=== PATIENT | male | born 1940 | race Caucasian/White ===

== ENCOUNTER 2020-04-30 13:50 | Inpatient (IN) ==
[2020-04-30] MEDS ORDERED: Aspirin 325 MG TABLET PO ONE (14:37)
[2020-04-30] MEDS ORDERED: Aspirin 81 MG TAB.CHEW PO ONE (14:45)
[2020-04-30 14:47] LABS: Basophils # 0.1 K/mcL (0.0-0.2); Basophils % 0.9 %; Eosinophils # 0.1 K/mcL (0.0-0.6); Eosinophils % 1.8 %; Hematocrit 42.6 % (37.5-50.1); Hemoglobin 14.6 g/dL (12.9-16.9); Immature Granulocytes % 0.2 % (0-4); Lymphocytes % 17.2 %; Mean Corpuscular HGB Conc 34.3 g/dL (31.6-35.5); Mean Corpuscular Hemoglobin 30.4 pg (28.0-33.3); Mean Corpuscular Volume 88.6 fL (83.0-100.0); Mean Platelet Volume 9.9 fL (9.4-12.4); Monocytes # 0.3 K/mcL (0.0-1.3); Neutrophils # 4.2 K/mcL (1.6-8.9); Platelet Count 191 K/mcL (140-400); Red Blood Count 4.81 M/mcL (4.19-5.50); Red Cell Distribution Width 12.8 % (11.5-14.5); Segmented Neutrophils % 73.9 %; White Blood Count 5.7 K/mcL (4.3-11.1)
[2020-04-30 15:08] LABS: BUN/Creatinine Ratio 17 (6-26); Blood Urea Nitrogen 17 mg/dL (8-23); Calcium 8.7 mg/dL (8.6-10.3); Carbon Dioxide 24 mEq/L (23-29); Chloride 107 mEq/L (98-107); Glucose 168 mg/dL (70-105); Osmolality,Calculated 289 (280-300); Potassium 3.8 mEq/L (3.5-5.1); Sodium 137 mEq/L (136-145); Troponin I < 0.03 ng/mL (< 0.04); eGFR For African Americans > 60 (> 60); eGFR For Non-African Americans > 60 (> 60)
[2020-04-30] MEDS ORDERED: D5% in Water 1,000 ML IVC PRN (15:56)
[2020-04-30] MEDS ORDERED: Ondansetron 4 MG/2 ML VIAL IVP PRN (15:56)
[2020-04-30] MEDS ORDERED: Naloxone 0.4 MG/ML INJ IVP PRN (15:56)
[2020-04-30] MEDS ORDERED: *HR* Dextrose 50 % in Water (Vial) 50 ML VIAL IVP PRN (15:56)
[2020-04-30] MEDS ORDERED: Acetaminophen 325 MG TABLET PO PRN (15:56)
[2020-04-30] MEDS ORDERED: Dextrose Gel 15 GM/37.5 ML TUBE PO PRN ×2 (15:56)
[2020-04-30] MEDS ORDERED: *HR* Heparin 5,000 UNIT/ML VIAL IVP ONE (16:05)
[2020-04-30] MEDS ORDERED: *HR* Heparin 5,000 UNIT/ML VIAL IVP PRN ×2 (16:05)
[2020-04-30] MEDS ORDERED: Nitroglycerin 0.4 MG TAB.SUBL SL PRN (16:05)
[2020-04-30] MEDS ORDERED: Perflutren Lipid Microsphere 1.3 ML in 0.9 % Sodium Chloride 8.7 ML IVP PRN (16:06)
[2020-04-30] MEDS ORDERED: Heparin 25,000UNIT/250ML 1/2NS 25,000 UNIT/250 ML IV.SOLN IVC SCH (16:15)
[2020-04-30] MEDS ORDERED: *HR* HYDROcodone/Acet 5/325 mg TABLET PO PRN (16:16)
[2020-04-30] MEDS: Insulin LISPRO 300 UNITS/3 ML VIAL SQ SCH (17:50)
[2020-04-30 17:57] LABS: Hematocrit 44.2 % (37.5-50.1); Hemoglobin 14.9 g/dL (12.9-16.9); Mean Corpuscular HGB Conc 33.7 g/dL (31.6-35.5); Mean Corpuscular Hemoglobin 29.5 pg (28.0-33.3); Mean Corpuscular Volume 87.5 fL (83.0-100.0); Mean Platelet Volume 10.1 fL (9.4-12.4); Platelet Count 217 K/mcL (140-400); Red Blood Count 5.05 M/mcL (4.19-5.50); Red Cell Distribution Width 12.8 % (11.5-14.5); White Blood Count 5.9 K/mcL (4.3-11.1)
[2020-04-30 17:59] LABS: Heparin anti-factor XA UFH < 0.04 IU/mL (0.30-0.70)
[2020-04-30 18:00] LABS: Prothrombin Time 11.2 Seconds (9.4-12.1)
[2020-04-30] MEDS ORDERED: cloNIDine HCL 0.1 MG TABLET PO ONE (18:54)
[2020-04-30] MEDS: Insulin DETEMIR 100 UNIT/ML X5UNITS SQ SCH (19:48)
[2020-05-01] MEDS: Insulin LISPRO 300 UNITS/3 ML VIAL SQ SCH ×3 (07:45→20:47)
[2020-05-01 08:00] LABS: Basophils % 0.5 %; Eosinophils # 0.1 K/mcL (0.0-0.6); Eosinophils % 1.4 %; Hematocrit 41.6 % (37.5-50.1); Hemoglobin 14.3 g/dL (12.9-16.9); Immature Granulocytes % 0.2 % (0-4); Lymphocytes # 1.2 K/mcL (0.6-4.6); Lymphocytes % 22.1 %; Mean Corpuscular HGB Conc 34.4 g/dL (31.6-35.5); Mean Corpuscular Hemoglobin 29.7 pg (28.0-33.3); Mean Corpuscular Volume 86.3 fL (83.0-100.0); Monocytes # 0.4 K/mcL (0.0-1.3); Monocytes % 7.1 %; Neutrophils # 3.8 K/mcL (1.6-8.9); Platelet Count 166 K/mcL (140-400); Red Blood Count 4.82 M/mcL (4.19-5.50); Red Cell Distribution Width 12.8 % (11.5-14.5); Segmented Neutrophils % 68.7 %; White Blood Count 5.5 K/mcL (4.3-11.1)
[2020-05-01 08:08] LABS: BUN/Creatinine Ratio 17 (6-26); Blood Urea Nitrogen 16 mg/dL (8-23); Calcium 8.6 mg/dL (8.6-10.3); Carbon Dioxide 21 mEq/L (23-29); Chloride 110 mEq/L (98-107); Chol/HDL Ratio 3.5 (0-4.9); Cholesterol 119 mg/dL (< 200); Glucose 101 mg/dL (70-105); HDL Cholesterol 34 mg/dL (40-59); LDL Cholesterol,Calculated 66 mg/dL (< 100); Osmolality,Calculated 289 (280-300); Potassium 3.3 mEq/L (3.5-5.1); Sodium 139 mEq/L (136-145); Triglycerides 93 mg/dL (< 150); eGFR For African Americans > 60 (> 60); eGFR For Non-African Americans > 60 (> 60)
[2020-05-01 10:34] LABS: Estimated Average Glucose 200 mg/dl
[2020-05-01] MEDS: Metoprolol XL (24 HR) Succ 50 MG TAB.ER.24H PO SCH ×2 (10:50→20:43)
[2020-05-01] MEDS: Spironolactone 25 MG TABLET PO SCH (11:01)
[2020-05-01] MEDS: Insulin DETEMIR 100 UNIT/ML X5UNITS SQ SCH ×2 (11:02→20:44)
[2020-05-01] MEDS: cloNIDine HCL 0.1 MG TABLET PO SCH ×2 (11:02→20:43)
[2020-05-01] MEDS: amLODIPine 5 MG TABLET PO SCH (11:02)
[2020-05-01] MEDS: Aspirin 81 MG TAB.CHEW PO SCH (11:02)
[2020-05-01] MEDS ORDERED: Heparin 1,000 UNITS/500 mL 500 ML ONE (12:34)
[2020-05-01] MEDS ORDERED: 0.9 % Sodium Chloride 2,000 ML ONE (12:34)
[2020-05-01] MEDS ORDERED: *HR* Heparin 10,000 UNIT/10 ML VIAL ONE (12:34)
[2020-05-01] MEDS ORDERED: ISOVUE-370 200 ML INFUS..BTL ONE ×2 (12:34→13:35)
[2020-05-01] MEDS ORDERED: Nitroglycerin 1,000 MCG/10 ML VIAL IV ONE (12:34)
[2020-05-01] MEDS ORDERED: *HR* FentaNYL (PF) 100 MCG/2 ML VIAL ONE (12:57)
[2020-05-01] MEDS ORDERED: *HR* Midazolam HCl 2 MG/2 ML VIAL ONE (12:57)
[2020-05-01] MEDS ORDERED: Tirofiban 12.5 MG/250ML 12.5 MG/250 ML BAG ONE (13:30)
[2020-05-01] MEDS ORDERED: Tirofiban 12.5 MG/250ML 12.5 MG/250 ML BAG IVC SCH (14:15)
[2020-05-02 01:36] LABS: Hematocrit 40.2 % (37.5-50.1)
[2020-05-02 02:11] LABS: BUN/Creatinine Ratio 13 (6-26); Blood Urea Nitrogen 12 mg/dL (8-23); Carbon Dioxide 21 mEq/L (23-29); Chloride 109 mEq/L (98-107); Glucose 76 mg/dL (70-105); Osmolality,Calculated 285 (280-300); Sodium 138 mEq/L (136-145); Troponin I 0.31 ng/mL (< 0.04); eGFR For African Americans > 60 (> 60); eGFR For Non-African Americans > 60 (> 60)
[2020-05-02 02:12] LABS: Calcium 8.2 mg/dL (8.6-10.3); Magnesium 1.7 mg/dL (1.6-2.6)
[2020-05-02 07:20] VITALS: BP 160/79
[2020-05-02] MEDS: Aspirin 81 MG TAB.CHEW PO SCH (07:58)
[2020-05-02] MEDS: Metoprolol XL (24 HR) Succ 50 MG TAB.ER.24H PO SCH (07:58)
[2020-05-02] MEDS: amLODIPine 5 MG TABLET PO SCH (07:58)
[2020-05-02] MEDS: cloNIDine HCL 0.1 MG TABLET PO SCH (07:59)
[2020-05-02] MEDS: Spironolactone 25 MG TABLET PO SCH (07:59)
[2020-05-02] MEDS: Insulin LISPRO 300 UNITS/3 ML VIAL SQ SCH (08:05)
[2020-05-02] MEDS: Insulin DETEMIR 100 UNIT/ML X5UNITS SQ SCH (08:30)
[2020-05-02] MEDS ORDERED: lisinopriL 10 MG TABLET PO SCH (09:00)
== END 2020-05-02 12:40 | disposition home or self-care (01) | DRG 247 ==
LOC: 3BNU 13:50 → EMEROOARM 13:50 → SUATTDRO 15:44 → 3BNU 16:40 → 2NNU 05-01 15:41
PROVIDERS: ADMIT Student in an Organized Health Care Education/Training Program; ATTEND Internal Medicine

== ENCOUNTER 2020-08-10 19:41 | Inpatient (IN) ==
[2020-08-10] MEDS ORDERED: 0.9 % Sodium Chloride 1,000 ML IVC ONE (20:03)
[2020-08-10 20:25] LABS: Bilirubin,Urine Negative (Negative); Blood,Urine Small (Negative); Clarity,Urine Clear (Clear); Color,Urine Light-Yellow (Yellow); Glucose,Urine (UA) >=1000 mg/dL (Normal); Hyaline Casts,Urine Few per lpf (None Seen); Ketones,Urine 150 mg/dL (Negative); Leukocyte Esterase,Urine Negative (Negative); Mucus,Urine Few per lpf (None-Few); Nitrite,Urine Negative (Negative); PH,Urine 5.5 pH Units (5.0-8.0); Protein,Urine 30 mg/dL (Neg-Trace); RBC,Urine 0-3 per hpf (0-3); Specific Gravity,Urine 1.023 (1.010-1.025); Urobilinogen,Urine Normal (Normal); WBC,Urine 0-3 per hpf (0-3)
[2020-08-10 20:28] LABS: Amphetamine Screen,Urine Negative ng/mL (Cutoff=1000); Barbiturate Screen,Urine Negative ng/mL (Cutoff=200); Benzodiazepines Screen,Urine Negative ng/mL (Cutoff=200); Cannabinoid Screen,Urine Negative ng/mL (Cutoff = 50); Cocaine Screen,Urine Negative ng/mL (Cutoff= 300); Opiate Screen,Urine Negative ng/mL (Cutoff=300); Phencyclidine Screen,Urine Negative ng/mL (Cutoff=25)
[2020-08-10 21:20] LABS: Basophils % 0.2 %; Hematocrit 49.7 % (37.5-50.1); Hemoglobin 16.7 g/dL (12.9-16.9); Immature Granulocytes % 0.5 % (0-4); Lymphocytes # 0.6 K/mcL (0.6-4.6); Lymphocytes % 6.9 %; Mean Corpuscular HGB Conc 33.6 g/dL (31.6-35.5); Mean Corpuscular Hemoglobin 29.3 pg (28.0-33.3); Mean Corpuscular Volume 87.3 fL (83.0-100.0); Mean Platelet Volume 9.8 fL (9.4-12.4); Monocytes # 0.4 K/mcL (0.0-1.3); Monocytes % 4.4 %; Neutrophils # 7.4 K/mcL (1.6-8.9); Platelet Count 296 K/mcL (140-400); Red Blood Count 5.69 M/mcL (4.19-5.50); Red Cell Distribution Width 13.2 % (11.5-14.5); White Blood Count 8.4 K/mcL (4.3-11.1)
[2020-08-10 21:28] LABS: INR 0.9; Prothrombin Time 10.2 Seconds (9.4-12.1)
[2020-08-10 21:31] LABS: Activated Partial Thrombo Time 27.9 Seconds (26.0-36.0)
[2020-08-10 21:49] LABS: Alanine Aminotransferase 18 Units/L (7-52); Albumin 4.8 g/dL (3.5-5.7); Albumin/Globulin Ratio 1.7 (1.1-2.2); Alkaline Phosphatase 113 Units/L (34-104); Aspartate Amino Transferase 13 Units/L (13-39); BUN/Creatinine Ratio 18 (6-26); Bilirubin,Direct 0.2 mg/dL (0.0-0.2); Bilirubin,Indirect 0.7 mg/dL (0.0-1.0); Bilirubin,Total 0.9 mg/dL (0.3-1.0); Blood Urea Nitrogen 32 mg/dL (8-23); Calcium 9.6 mg/dL (8.6-10.3); Carbon Dioxide 7 mEq/L (23-29); Chloride 92 mEq/L (98-107); Ethanol < 10 mg/dL (Less than 10); Globulin 2.8 g/dL (2.4-3.5); Glucose 628 mg/dL (70-105); Osmolality,Calculated 300 (280-300); Potassium 5.3 mEq/L (3.5-5.1); Sodium 127 mEq/L (136-145); Total Protein 7.6 g/dL (6.4-8.9); Troponin I < 0.03 ng/mL (< 0.04); eGFR For African Americans 45 (> 60); eGFR For Non-African Americans 37 (> 60)
[2020-08-10] MEDS ORDERED: Insulin Human Regular 100 UNIT in 0.9 % Sodium Chloride 100 ML IVC SCH ×2 (22:15→23:15)
[2020-08-10 22:31] LABS: ABG Base Excess -24 mEq/L (-2 to 3); ABG HCO3 5 mEq/L (21-27); ABG Oxygen Saturation 97 % (95-98); ABG PCO2 17 mmHg (35-45); ABG PH 7.06 pH Units (7.32-7.45); ABG PO2 123 mmHg (85-104); ABG TCO2 5 mEq/L (20-26)
[2020-08-10] MEDS ORDERED: 0.9 % Sodium Chloride 1,000 ML IV ONE (22:35)
[2020-08-10] MEDS ORDERED: Insulin Regular, Human 100 UNIT/ML IV PRN ×2 (23:03)
[2020-08-10] MEDS ORDERED: *HR* Dextrose 50 % in Water (Vial) 50 ML VIAL IVP PRN (23:03)
[2020-08-10] MEDS ORDERED: D5% in 0.45% NACL 1,000 ML IVC PRN (23:03)
[2020-08-10] MEDS ORDERED: 0.9 % Sodium Chloride 1,000 ML IVC SCH (23:15)
[2020-08-10] MEDS ORDERED: 0.45 % Sodium Chloride w/KCl 20 MEQ/1,000 ML MLS IVC PRN (23:15)
[2020-08-10] MEDS ORDERED: Naloxone 0.4 MG/ML INJ IVP PRN (23:22)
[2020-08-10] MEDS ORDERED: Ondansetron 4 MG/2 ML VIAL IVP PRN (23:22)
[2020-08-11] MEDS: 0.9 % Sodium Chloride 1,000 ML IVC SCH ×2 (01:00→13:17)
[2020-08-11 01:20] LABS: Basophils % 0.2 %; Hematocrit 48.3 % (37.5-50.1); Hemoglobin 16.4 g/dL (12.9-16.9); Immature Granulocytes % 0.3 % (0-4); Lymphocytes # 0.3 K/mcL (0.6-4.6); Mean Corpuscular Hemoglobin 29.5 pg (28.0-33.3); Mean Corpuscular Volume 86.9 fL (83.0-100.0); Mean Platelet Volume 9.7 fL (9.4-12.4); Monocytes # 0.4 K/mcL (0.0-1.3); Monocytes % 3.7 %; Neutrophils # 9.7 K/mcL (1.6-8.9); Platelet Count 292 K/mcL (140-400); Red Blood Count 5.56 M/mcL (4.19-5.50); Red Cell Distribution Width 13.2 % (11.5-14.5); Segmented Neutrophils % 92.8 %; White Blood Count 10.4 K/mcL (4.3-11.1)
[2020-08-11 01:39] LABS: Calcium 8.9 mg/dL (8.6-10.3); Potassium 4.3 mEq/L (3.5-5.1)
[2020-08-11] MEDS: 0.45 % Sodium Chloride w/KCl 20 MEQ/1,000 ML MLS IVC PRN ×2 (02:33→05:34)
[2020-08-11 04:07] LABS: Basophils % 0.1 %; Hematocrit 44.9 % (37.5-50.1); Hemoglobin 15.4 g/dL (12.9-16.9); Immature Granulocytes % 0.6 % (0-4); Lymphocytes # 0.6 K/mcL (0.6-4.6); Lymphocytes % 5.5 %; Mean Corpuscular HGB Conc 34.3 g/dL (31.6-35.5); Mean Corpuscular Hemoglobin 29.1 pg (28.0-33.3); Mean Corpuscular Volume 84.9 fL (83.0-100.0); Mean Platelet Volume 9.8 fL (9.4-12.4); Monocytes # 0.6 K/mcL (0.0-1.3); Monocytes % 5.6 %; Neutrophils # 8.8 K/mcL (1.6-8.9); Platelet Count 273 K/mcL (140-400); Red Blood Count 5.29 M/mcL (4.19-5.50); Red Cell Distribution Width 13.2 % (11.5-14.5); Segmented Neutrophils % 88.2 %
[2020-08-11 04:15] LABS: Estimated Average Glucose 240 mg/dl
[2020-08-11 04:26] LABS: Albumin 4.3 g/dL (3.5-5.7); Albumin/Globulin Ratio 1.8 (1.1-2.2); Bilirubin,Total 0.7 mg/dL (0.3-1.0); Calcium 8.8 mg/dL (8.6-10.3); Globulin 2.4 g/dL (2.4-3.5); Total Protein 6.7 g/dL (6.4-8.9)
[2020-08-11] MEDS: *HR* Heparin 5,000 UNIT/ML VIAL SQ SCH ×2 (05:35→18:36)
[2020-08-11] MEDS: D5% in 0.45% NACL w KCl 20 MEQ/1,000 ML MLS IVC PRN ×2 (06:23→10:47)
[2020-08-11] MEDS: Insulin Human Regular 100 UNIT in 0.9 % Sodium Chloride 100 ML IVC SCH ×2 (07:38→07:44)
[2020-08-11] MEDS: Metoprolol XL (24 HR) Succ 50 MG TAB.ER.24H PO SCH ×2 (07:47→20:31)
[2020-08-11] MEDS: amLODIPine 5 MG TABLET PO SCH (07:47)
[2020-08-11] MEDS: Aspirin 81 MG TAB.CHEW PO SCH (07:48)
[2020-08-11] MEDS: cloNIDine HCL 0.1 MG TABLET PO SCH ×2 (07:48→20:31)
[2020-08-11 08:38] LABS: BUN/Creatinine Ratio 22 (6-26); Blood Urea Nitrogen 27 mg/dL (8-23); Calcium 8.2 mg/dL (8.6-10.3); Carbon Dioxide 11 mEq/L (23-29); Chloride 109 mEq/L (98-107); Glucose 211 mg/dL (70-105); Osmolality,Calculated 287 (280-300); Potassium 3.9 mEq/L (3.5-5.1); Sodium 133 mEq/L (136-145); eGFR For African Americans > 60 (> 60); eGFR For Non-African Americans 56 (> 60)
[2020-08-11] MEDS ORDERED: Spironolactone 25 MG TABLET PO SCH (09:00)
[2020-08-11 10:05] LABS: BUN/Creatinine Ratio 21 (6-26); Blood Urea Nitrogen 25 mg/dL (8-23); Calcium 8.3 mg/dL (8.6-10.3); Carbon Dioxide 14 mEq/L (23-29); Chloride 109 mEq/L (98-107); Glucose 197 mg/dL (70-105); Osmolality,Calculated 286 (280-300); Potassium 3.6 mEq/L (3.5-5.1); Sodium 133 mEq/L (136-145); eGFR For African Americans > 60 (> 60); eGFR For Non-African Americans 58 (> 60)
[2020-08-11] MEDS ORDERED: Potassium Chloride Elixir 20 MEQ/15 ML UDC PO ONE ×2 (10:48→15:00)
[2020-08-11 12:27] LABS: BUN/Creatinine Ratio 21 (6-26); Blood Urea Nitrogen 24 mg/dL (8-23); Calcium 8.2 mg/dL (8.6-10.3); Carbon Dioxide 13 mEq/L (23-29); Chloride 110 mEq/L (98-107); Glucose 119 mg/dL (70-105); Osmolality,Calculated 281 (280-300); Potassium 3.4 mEq/L (3.5-5.1); Sodium 133 mEq/L (136-145); eGFR For African Americans > 60 (> 60); eGFR For Non-African Americans > 60 (> 60)
[2020-08-11] MEDS ORDERED: Dextrose Gel 15 GM/37.5 ML TUBE PO PRN ×2 (12:57)
[2020-08-11] MEDS ORDERED: *HR* Dextrose 50 % in Water (Vial) 50 ML VIAL IVP PRN (12:57)
[2020-08-11] MEDS ORDERED: D5% in Water 1,000 ML IVC PRN (12:57)
[2020-08-11] MEDS ORDERED: Insulin DETEMIR 100 UNIT/ML X5UNITS SUBQ SCH (13:00)
[2020-08-11] MEDS ORDERED: Sodium Bicarbonate 150 MEQ in Water for inj. (sterile) 1,000 ML IVC SCH (13:12)
[2020-08-11 14:26] LABS: BUN/Creatinine Ratio 21 (6-26); Blood Urea Nitrogen 22 mg/dL (8-23); Calcium 8.4 mg/dL (8.6-10.3); Carbon Dioxide 14 mEq/L (23-29); Chloride 111 mEq/L (98-107); Glucose 80 mg/dL (70-105); Osmolality,Calculated 280 (280-300); Potassium 3.5 mEq/L (3.5-5.1); Sodium 134 mEq/L (136-145); eGFR For African Americans > 60 (> 60); eGFR For Non-African Americans > 60 (> 60)
[2020-08-11] MEDS: Insulin LISPRO 300 UNITS/3 ML VIAL SUBQ SCH (18:36)
[2020-08-11] MEDS: Insulin DETEMIR 100 UNIT/ML X5UNITS SUBQ SCH (20:31)
[2020-08-12 00:28] LABS: VBG HCO3 18 mEq/L (21-27); VBG PCO2 33 mmHg (41-51); VBG PH 7.34 pH Units (7.32-7.42); VBG PO2 38 mmHg (25-50)
[2020-08-12 00:46] LABS: BUN/Creatinine Ratio 16 (6-26); Blood Urea Nitrogen 17 mg/dL (8-23); Calcium 8.7 mg/dL (8.6-10.3); Carbon Dioxide 18 mEq/L (23-29); Chloride 103 mEq/L (98-107); Glucose 229 mg/dL (70-105); Osmolality,Calculated 281 (280-300); Sodium 131 mEq/L (136-145); eGFR For African Americans > 60 (> 60); eGFR For Non-African Americans > 60 (> 60)
[2020-08-12] MEDS: *HR* Heparin 5,000 UNIT/ML VIAL SQ SCH ×2 (06:03→17:29)
[2020-08-12] MEDS: Metoprolol XL (24 HR) Succ 50 MG TAB.ER.24H PO SCH ×2 (08:02→20:44)
[2020-08-12] MEDS: cloNIDine HCL 0.1 MG TABLET PO SCH ×2 (08:02→20:44)
[2020-08-12] MEDS: Aspirin 81 MG TAB.CHEW PO SCH (08:02)
[2020-08-12] MEDS: amLODIPine 5 MG TABLET PO SCH (08:02)
[2020-08-12] MEDS: Insulin LISPRO 300 UNITS/3 ML VIAL SUBQ SCH ×3 (08:03→17:29)
[2020-08-12] MEDS: Megestrol Acetate 400 MG/10 ML UDC PO SCH (08:26)
[2020-08-12] MEDS ORDERED: Ibuprofen 200 MG TABLET PO ONE (09:30)
[2020-08-12] MEDS: Insulin DETEMIR 100 UNIT/ML X5UNITS SUBQ SCH (20:44)
[2020-08-12] MEDS: *HR* OxyCODONE/APAP 5/325 TABLET PO PRN (20:50)
[2020-08-13] MEDS: Melatonin 3 MG TABLET PO PRN (00:32)
[2020-08-13 01:55] LABS: Hematocrit 39.6 % (37.5-50.1); Hemoglobin 14.3 g/dL (12.9-16.9); Mean Corpuscular HGB Conc 36.1 g/dL (31.6-35.5); Mean Corpuscular Hemoglobin 29.3 pg (28.0-33.3); Mean Corpuscular Volume 81.1 fL (83.0-100.0); Mean Platelet Volume 9.6 fL (9.4-12.4); Platelet Count 155 K/mcL (140-400); Red Blood Count 4.88 M/mcL (4.19-5.50); Red Cell Distribution Width 13.2 % (11.5-14.5); White Blood Count 5.2 K/mcL (4.3-11.1)
[2020-08-13 02:17] LABS: BUN/Creatinine Ratio 14 (6-26); Blood Urea Nitrogen 13 mg/dL (8-23); Calcium 8.9 mg/dL (8.6-10.3); Carbon Dioxide 20 mEq/L (23-29); Chloride 105 mEq/L (98-107); Glucose 252 mg/dL (70-105); Osmolality,Calculated 289 (280-300); Potassium 3.2 mEq/L (3.5-5.1); Sodium 135 mEq/L (136-145); eGFR For African Americans > 60 (> 60); eGFR For Non-African Americans > 60 (> 60)
[2020-08-13] MEDS: *HR* Heparin 5,000 UNIT/ML VIAL SQ SCH ×2 (06:08→18:08)
[2020-08-13] MEDS: Insulin LISPRO 300 UNITS/3 ML VIAL SUBQ SCH ×3 (08:58→18:09)
[2020-08-13] MEDS: amLODIPine 5 MG TABLET PO SCH (09:11)
[2020-08-13] MEDS: Megestrol Acetate 400 MG/10 ML UDC PO SCH (09:11)
[2020-08-13] MEDS: Metoprolol XL (24 HR) Succ 50 MG TAB.ER.24H PO SCH ×2 (09:11→21:51)
[2020-08-13] MEDS: cloNIDine HCL 0.1 MG TABLET PO SCH ×2 (09:11→21:51)
[2020-08-13] MEDS: Aspirin 81 MG TAB.CHEW PO SCH (09:11)
[2020-08-13] MEDS: Insulin DETEMIR 100 UNIT/ML X5UNITS SUBQ SCH (21:52)
[2020-08-14 00:56] LABS: Hematocrit 40.9 % (37.5-50.1); Hemoglobin 14.5 g/dL (12.9-16.9); Mean Corpuscular HGB Conc 35.5 g/dL (31.6-35.5); Mean Corpuscular Hemoglobin 29.8 pg (28.0-33.3); Mean Platelet Volume 10.3 fL (9.4-12.4); Platelet Count 154 K/mcL (140-400); Red Blood Count 4.87 M/mcL (4.19-5.50); Red Cell Distribution Width 13.3 % (11.5-14.5); White Blood Count 4.1 K/mcL (4.3-11.1)
[2020-08-14 01:17] LABS: BUN/Creatinine Ratio 16 (6-26); Blood Urea Nitrogen 15 mg/dL (8-23); Calcium 8.6 mg/dL (8.6-10.3); Carbon Dioxide 20 mEq/L (23-29); Chloride 103 mEq/L (98-107); Glucose 279 mg/dL (70-105); Osmolality,Calculated 289 (280-300); Potassium 3.6 mEq/L (3.5-5.1); Sodium 134 mEq/L (136-145); eGFR For African Americans > 60 (> 60); eGFR For Non-African Americans > 60 (> 60)
[2020-08-14] MEDS: *HR* Heparin 5,000 UNIT/ML VIAL SQ SCH ×2 (06:39→19:10)
[2020-08-14] MEDS: cloNIDine HCL 0.1 MG TABLET PO SCH ×2 (08:01→21:02)
[2020-08-14] MEDS: Metoprolol XL (24 HR) Succ 50 MG TAB.ER.24H PO SCH ×2 (08:01→21:02)
[2020-08-14] MEDS: amLODIPine 5 MG TABLET PO SCH (08:01)
[2020-08-14] MEDS: Aspirin 81 MG TAB.CHEW PO SCH (08:02)
[2020-08-14] MEDS: Megestrol Acetate 400 MG/10 ML UDC PO SCH (08:02)
[2020-08-14] MEDS: Insulin LISPRO 300 UNITS/3 ML VIAL SUBQ SCH ×3 (08:02→18:22)
[2020-08-14] MEDS: Melatonin 3 MG TABLET PO PRN (21:02)
[2020-08-14] MEDS: Insulin DETEMIR 100 UNIT/ML X5UNITS SUBQ SCH (21:03)
[2020-08-15 05:32] LABS: Hematocrit 38.5 % (37.5-50.1); Hemoglobin 13.6 g/dL (12.9-16.9); Mean Corpuscular HGB Conc 35.3 g/dL (31.6-35.5); Mean Corpuscular Hemoglobin 29.9 pg (28.0-33.3); Mean Corpuscular Volume 84.6 fL (83.0-100.0); Mean Platelet Volume 10.2 fL (9.4-12.4); Platelet Count 162 K/mcL (140-400); Red Blood Count 4.55 M/mcL (4.19-5.50); Red Cell Distribution Width 13.2 % (11.5-14.5); White Blood Count 3.9 K/mcL (4.3-11.1)
[2020-08-15] MEDS: *HR* Heparin 5,000 UNIT/ML VIAL SQ SCH ×2 (05:58→18:40)
[2020-08-15 08:13] LABS: BUN/Creatinine Ratio 18 (6-26); Blood Urea Nitrogen 18 mg/dL (8-23); Calcium 8.4 mg/dL (8.6-10.3); Carbon Dioxide 21 mEq/L (23-29); Chloride 104 mEq/L (98-107); Glucose 221 mg/dL (70-105); Osmolality,Calculated 287 (280-300); Potassium 3.3 mEq/L (3.5-5.1); Sodium 134 mEq/L (136-145); eGFR For African Americans > 60 (> 60); eGFR For Non-African Americans > 60 (> 60)
[2020-08-15] MEDS: Cholecalciferol (D-3) 1,000 UNIT (25MCG) TABLET PO SCH (09:37)
[2020-08-15] MEDS: Aspirin 81 MG TAB.CHEW PO SCH (09:37)
[2020-08-15] MEDS: cloNIDine HCL 0.1 MG TABLET PO SCH ×2 (09:37→20:12)
[2020-08-15] MEDS: Megestrol Acetate 400 MG/10 ML UDC PO SCH (09:37)
[2020-08-15] MEDS: amLODIPine 5 MG TABLET PO SCH (09:38)
[2020-08-15] MEDS: Insulin LISPRO 300 UNITS/3 ML VIAL SUBQ SCH ×4 (09:39→22:16)
[2020-08-15] MEDS: Metoprolol XL (24 HR) Succ 50 MG TAB.ER.24H PO SCH ×2 (09:39→20:12)
[2020-08-15] MEDS: Insulin DETEMIR 100 UNIT/ML X5UNITS SUBQ SCH (20:12)
[2020-08-16] MEDS: Insulin LISPRO 300 UNITS/3 ML VIAL SUBQ SCH ×6 (00:02→16:57)
[2020-08-16 02:07] LABS: Hematocrit 40.2 % (37.5-50.1); Hemoglobin 13.7 g/dL (12.9-16.9); Mean Corpuscular HGB Conc 34.1 g/dL (31.6-35.5); Mean Corpuscular Hemoglobin 29.3 pg (28.0-33.3); Mean Corpuscular Volume 86.1 fL (83.0-100.0); Mean Platelet Volume 10.2 fL (9.4-12.4); Platelet Count 216 K/mcL (140-400); Red Blood Count 4.67 M/mcL (4.19-5.50); Red Cell Distribution Width 13.2 % (11.5-14.5); White Blood Count 5.4 K/mcL (4.3-11.1)
[2020-08-16 02:27] LABS: BUN/Creatinine Ratio 21 (6-26); Blood Urea Nitrogen 25 mg/dL (8-23); Calcium 8.9 mg/dL (8.6-10.3); Carbon Dioxide 21 mEq/L (23-29); Chloride 106 mEq/L (98-107); Glucose 99 mg/dL (70-105); Osmolality,Calculated 286 (280-300); Potassium 3.5 mEq/L (3.5-5.1); Sodium 136 mEq/L (136-145); eGFR For African Americans > 60 (> 60); eGFR For Non-African Americans 59 (> 60)
[2020-08-16] MEDS: Melatonin 3 MG TABLET PO PRN (04:50)
[2020-08-16] MEDS: *HR* Heparin 5,000 UNIT/ML VIAL SQ SCH ×2 (04:50→16:57)
[2020-08-16] MEDS: Metoprolol XL (24 HR) Succ 50 MG TAB.ER.24H PO SCH ×2 (08:34→20:17)
[2020-08-16] MEDS: amLODIPine 5 MG TABLET PO SCH (08:34)
[2020-08-16] MEDS: cloNIDine HCL 0.1 MG TABLET PO SCH ×2 (08:34→20:17)
[2020-08-16] MEDS: Megestrol Acetate 400 MG/10 ML UDC PO SCH (08:34)
[2020-08-16] MEDS: Aspirin 81 MG TAB.CHEW PO SCH (08:34)
[2020-08-16] MEDS: Cholecalciferol (D-3) 1,000 UNIT (25MCG) TABLET PO SCH (08:34)
[2020-08-16 17:28] LABS: Bilirubin,Urine Negative (Negative); Blood,Urine Negative (Negative); Clarity,Urine Clear (Clear); Color,Urine Light-Yellow (Yellow); Glucose,Urine (UA) >=1000 mg/dL (Normal); Ketones,Urine Negative (Negative); Leukocyte Esterase,Urine Negative (Negative); Nitrite,Urine Negative (Negative); Protein,Urine Negative (Neg-Trace); RBC,Urine 0-3 per hpf (0-3); Urobilinogen,Urine Normal (Normal); WBC,Urine 0-3 per hpf (0-3)
[2020-08-16] MEDS: Insulin DETEMIR 100 UNIT/ML X5UNITS SUBQ SCH (20:17)
[2020-08-17] MEDS: Melatonin 3 MG TABLET PO PRN ×2 (01:08→20:09)
[2020-08-17 01:41] LABS: Hematocrit 37.4 % (37.5-50.1); Hemoglobin 12.8 g/dL (12.9-16.9); Mean Corpuscular HGB Conc 34.2 g/dL (31.6-35.5); Mean Corpuscular Hemoglobin 29.4 pg (28.0-33.3); Mean Corpuscular Volume 85.8 fL (83.0-100.0); Mean Platelet Volume 10.4 fL (9.4-12.4); Platelet Count 178 K/mcL (140-400); Red Blood Count 4.36 M/mcL (4.19-5.50); Red Cell Distribution Width 13.4 % (11.5-14.5)
[2020-08-17 01:53] LABS: BUN/Creatinine Ratio 21 (6-26); Blood Urea Nitrogen 23 mg/dL (8-23); Carbon Dioxide 22 mEq/L (23-29); Chloride 103 mEq/L (98-107); Sodium 134 mEq/L (136-145)
[2020-08-17 01:54] LABS: Calcium 8.2 mg/dL (8.6-10.3); Glucose 282 mg/dL (70-105); Osmolality,Calculated 292 (280-300); eGFR For African Americans > 60 (> 60); eGFR For Non-African Americans > 60 (> 60)
[2020-08-17] MEDS: *HR* Heparin 5,000 UNIT/ML VIAL SQ SCH ×2 (05:59→17:01)
[2020-08-17] MEDS: Cholecalciferol (D-3) 1,000 UNIT (25MCG) TABLET PO SCH (07:54)
[2020-08-17] MEDS: Metoprolol XL (24 HR) Succ 50 MG TAB.ER.24H PO SCH ×2 (07:54→20:09)
[2020-08-17] MEDS: Aspirin 81 MG TAB.CHEW PO SCH (07:54)
[2020-08-17] MEDS: amLODIPine 5 MG TABLET PO SCH (07:54)
[2020-08-17] MEDS: cloNIDine HCL 0.1 MG TABLET PO SCH ×2 (07:54→20:09)
[2020-08-17] MEDS: Megestrol Acetate 400 MG/10 ML UDC PO SCH (07:55)
[2020-08-17] MEDS: Insulin LISPRO 300 UNITS/3 ML VIAL SUBQ SCH ×4 (07:58→20:21)
[2020-08-17] MEDS: Insulin DETEMIR 100 UNIT/ML X5UNITS SUBQ SCH (20:10)
[2020-08-17] MEDS ORDERED: *HR* LORazepam 2 MG/ML VIAL IVP ONE (22:50)
[2020-08-17] MEDS ORDERED: *HR* LORazepam 2 MG/ML VIAL ONE (23:02)
[2020-08-17] MEDS ORDERED: Haloperidol Lactate 5 MG/ML VIAL IVP STA (23:35)
[2020-08-18] MEDS ORDERED: Haloperidol Lactate 5 MG/ML VIAL IVP STA (01:33)
[2020-08-18] MEDS: *HR* Heparin 5,000 UNIT/ML VIAL SQ SCH ×2 (05:35→17:42)
[2020-08-18] MEDS: Megestrol Acetate 400 MG/10 ML UDC PO SCH (09:10)
[2020-08-18] MEDS: Metoprolol XL (24 HR) Succ 50 MG TAB.ER.24H PO SCH ×2 (09:12→21:42)
[2020-08-18] MEDS: Cholecalciferol (D-3) 1,000 UNIT (25MCG) TABLET PO SCH (09:12)
[2020-08-18] MEDS: Aspirin 81 MG TAB.CHEW PO SCH (09:12)
[2020-08-18] MEDS: cloNIDine HCL 0.1 MG TABLET PO SCH ×2 (09:13→21:42)
[2020-08-18] MEDS: Insulin LISPRO 300 UNITS/3 ML VIAL SUBQ SCH ×4 (09:16→21:45)
[2020-08-18] MEDS: amLODIPine 5 MG TABLET PO SCH (09:16)
[2020-08-18 09:21] LABS: Thyroid Stimulating Hormone 5.729 mcIU/mL (0.340-5.600)
[2020-08-18 09:31] LABS: Folate 14.8 ng/mL (3.0-16.0)
[2020-08-18] MEDS ORDERED: Haloperidol Lactate 5 MG/ML VIAL IM PRN (10:55)
[2020-08-18] MEDS: Cyanocobalamin (B-12) 1,000 MCG TABLET PO SCH (11:40)
[2020-08-18 11:41] LABS: Triiodothyronine (T3) Free 3.15 pg/mL (2.50-3.90)
[2020-08-18] MEDS ORDERED: QUEtiapine Fumarate 25 MG TABLET PO SCH (21:00)
[2020-08-18] MEDS: Insulin DETEMIR 100 UNIT/ML X5UNITS SUBQ SCH (21:46)
[2020-08-19] MEDS ORDERED: Haloperidol Lactate 5 MG/ML VIAL IVP ONE ×2 (01:09→05:12)
[2020-08-19] MEDS: *HR* Heparin 5,000 UNIT/ML VIAL SQ SCH ×2 (06:03→17:01)
[2020-08-19] MEDS: Megestrol Acetate 400 MG/10 ML UDC PO SCH (08:49)
[2020-08-19] MEDS: Cholecalciferol (D-3) 1,000 UNIT (25MCG) TABLET PO SCH (08:49)
[2020-08-19] MEDS: amLODIPine 5 MG TABLET PO SCH (08:49)
[2020-08-19] MEDS: cloNIDine HCL 0.1 MG TABLET PO SCH ×2 (08:49→20:31)
[2020-08-19] MEDS: Aspirin 81 MG TAB.CHEW PO SCH (08:49)
[2020-08-19] MEDS: Cyanocobalamin (B-12) 1,000 MCG TABLET PO SCH (08:50)
[2020-08-19] MEDS: Metoprolol XL (24 HR) Succ 50 MG TAB.ER.24H PO SCH ×2 (08:50→20:31)
[2020-08-19] MEDS: Insulin LISPRO 300 UNITS/3 ML VIAL SUBQ SCH ×4 (08:55→20:31)
[2020-08-19] MEDS ORDERED: QUEtiapine Fumarate 25 MG TABLET PO SCH ×2 (10:45→21:00)
[2020-08-19] MEDS ORDERED: QUEtiapine Fumarate 25 MG TABLET PO ONE (12:29)
[2020-08-19] MEDS: Haloperidol Lactate 5 MG/ML VIAL IVP PRN ×2 (12:37→18:04)
[2020-08-19] MEDS ORDERED: Cyanocobalamin (B-12) 1,000 MCG/ML VIAL IM ONE (16:10)
[2020-08-19] MEDS: Insulin DETEMIR 100 UNIT/ML X5UNITS SUBQ SCH (20:31)
[2020-08-19] MEDS: haloperidoL 1 MG TABLET PO SCH (20:33)
[2020-08-20] MEDS: *HR* Heparin 5,000 UNIT/ML VIAL SQ SCH ×2 (05:37→16:57)
[2020-08-20 08:07] LABS: Alanine Aminotransferase 21 Units/L (7-52); Albumin 3.7 g/dL (3.5-5.7); Albumin/Globulin Ratio 1.5 (1.1-2.2); Alkaline Phosphatase 72 Units/L (34-104); Aspartate Amino Transferase 23 Units/L (13-39); BUN/Creatinine Ratio 21 (6-26); Bilirubin,Total 0.8 mg/dL (0.3-1.0); Blood Urea Nitrogen 22 mg/dL (8-23); Carbon Dioxide 22 mEq/L (23-29); Chloride 109 mEq/L (98-107); Globulin 2.4 g/dL (2.4-3.5); Glucose 136 mg/dL (70-105); Osmolality,Calculated 293 (280-300); Potassium 3.7 mEq/L (3.5-5.1); Sodium 139 mEq/L (136-145); Total Protein 6.1 g/dL (6.4-8.9); eGFR For African Americans > 60 (> 60); eGFR For Non-African Americans > 60 (> 60)
[2020-08-20] MEDS: Megestrol Acetate 400 MG/10 ML UDC PO SCH (08:07)
[2020-08-20] MEDS: haloperidoL 1 MG TABLET PO SCH ×2 (08:07→19:57)
[2020-08-20] MEDS: Cholecalciferol (D-3) 1,000 UNIT (25MCG) TABLET PO SCH (08:07)
[2020-08-20] MEDS: Cyanocobalamin (B-12) 1,000 MCG TABLET PO SCH (08:07)
[2020-08-20] MEDS: Aspirin 81 MG TAB.CHEW PO SCH (08:07)
[2020-08-20] MEDS: Metoprolol XL (24 HR) Succ 50 MG TAB.ER.24H PO SCH ×2 (08:08→19:58)
[2020-08-20] MEDS: amLODIPine 5 MG TABLET PO SCH (08:08)
[2020-08-20] MEDS: cloNIDine HCL 0.1 MG TABLET PO SCH ×2 (08:08→19:58)
[2020-08-20] MEDS: Insulin LISPRO 300 UNITS/3 ML VIAL SUBQ SCH ×4 (08:17→20:03)
[2020-08-20] MEDS ORDERED: Cyanocobalamin (B-12) 1,000 MCG/ML VIAL IM ONE (16:19)
[2020-08-20] MEDS: Insulin DETEMIR 100 UNIT/ML X5UNITS SUBQ SCH (19:58)
[2020-08-20] MEDS: Melatonin 3 MG TABLET PO PRN (19:58)
[2020-08-20] MEDS: Haloperidol Lactate 5 MG/ML VIAL IVP PRN (22:27)
[2020-08-21 01:24] LABS: Alanine Aminotransferase 18 Units/L (7-52); Albumin 3.3 g/dL (3.5-5.7); Albumin/Globulin Ratio 1.5 (1.1-2.2); Alkaline Phosphatase 65 Units/L (34-104); Aspartate Amino Transferase 15 Units/L (13-39); BUN/Creatinine Ratio 25 (6-26); Bilirubin,Total 0.4 mg/dL (0.3-1.0); Blood Urea Nitrogen 30 mg/dL (8-23); Calcium 8.5 mg/dL (8.6-10.3); Carbon Dioxide 21 mEq/L (23-29); Chloride 105 mEq/L (98-107); Globulin 2.2 g/dL (2.4-3.5); Glucose 185 mg/dL (70-105); Osmolality,Calculated 289 (280-300); Sodium 134 mEq/L (136-145); Total Protein 5.5 g/dL (6.4-8.9); eGFR For African Americans > 60 (> 60); eGFR For Non-African Americans 57 (> 60)
[2020-08-21] MEDS: Haloperidol Lactate 5 MG/ML VIAL IVP PRN ×2 (05:49→22:35)
[2020-08-21] MEDS: *HR* Heparin 5,000 UNIT/ML VIAL SQ SCH ×2 (05:49→17:40)
[2020-08-21] MEDS: Insulin LISPRO 300 UNITS/3 ML VIAL SUBQ SCH ×4 (07:45→20:10)
[2020-08-21] MEDS: Megestrol Acetate 400 MG/10 ML UDC PO SCH (07:56)
[2020-08-21] MEDS: Cyanocobalamin (B-12) 1,000 MCG TABLET PO SCH (07:57)
[2020-08-21] MEDS: amLODIPine 5 MG TABLET PO SCH (07:57)
[2020-08-21] MEDS: Aspirin 81 MG TAB.CHEW PO SCH (07:57)
[2020-08-21] MEDS: Metoprolol XL (24 HR) Succ 50 MG TAB.ER.24H PO SCH ×2 (07:57→20:09)
[2020-08-21] MEDS: cloNIDine HCL 0.1 MG TABLET PO SCH ×2 (07:57→20:09)
[2020-08-21] MEDS: Cholecalciferol (D-3) 1,000 UNIT (25MCG) TABLET PO SCH (07:58)
[2020-08-21] MEDS: haloperidoL 1 MG TABLET PO SCH ×2 (07:58→20:09)
[2020-08-21] MEDS ORDERED: Cyanocobalamin (B-12) 1,000 MCG/ML VIAL IM ONE (12:35)
[2020-08-21] MEDS: *HR* OxyCODONE/APAP 5/325 TABLET PO PRN (20:09)
[2020-08-21] MEDS: Melatonin 3 MG TABLET PO PRN (20:09)
[2020-08-21] MEDS: Insulin DETEMIR 100 UNIT/ML X5UNITS SUBQ SCH (20:10)
[2020-08-22] MEDS ORDERED: Haloperidol Lactate 5 MG/ML VIAL IVP ONE (00:05)
[2020-08-22 01:45] LABS: Alanine Aminotransferase 19 Units/L (7-52); Albumin 3.9 g/dL (3.5-5.7); Albumin/Globulin Ratio 1.5 (1.1-2.2); Alkaline Phosphatase 76 Units/L (34-104); Aspartate Amino Transferase 15 Units/L (13-39); BUN/Creatinine Ratio 30 (6-26); Bilirubin,Total 0.6 mg/dL (0.3-1.0); Blood Urea Nitrogen 33 mg/dL (8-23); Calcium 9.1 mg/dL (8.6-10.3); Carbon Dioxide 23 mEq/L (23-29); Chloride 105 mEq/L (98-107); Globulin 2.6 g/dL (2.4-3.5); Glucose 150 mg/dL (70-105); Osmolality,Calculated 292 (280-300); Potassium 4.2 mEq/L (3.5-5.1); Sodium 136 mEq/L (136-145); Total Protein 6.5 g/dL (6.4-8.9); eGFR For African Americans > 60 (> 60); eGFR For Non-African Americans > 60 (> 60)
[2020-08-22] MEDS: Haloperidol Lactate 5 MG/ML VIAL IVP PRN ×3 (04:01→19:50)
[2020-08-22] MEDS: *HR* Heparin 5,000 UNIT/ML VIAL SQ SCH ×2 (05:55→17:29)
[2020-08-22] MEDS: Metoprolol XL (24 HR) Succ 50 MG TAB.ER.24H PO SCH ×2 (08:21→21:40)
[2020-08-22] MEDS: Cyanocobalamin (B-12) 1,000 MCG TABLET PO SCH (08:21)
[2020-08-22] MEDS: haloperidoL 1 MG TABLET PO SCH ×2 (08:21→19:47)
[2020-08-22] MEDS: cloNIDine HCL 0.1 MG TABLET PO SCH ×2 (08:21→21:40)
[2020-08-22] MEDS: Cholecalciferol (D-3) 1,000 UNIT (25MCG) TABLET PO SCH (08:21)
[2020-08-22] MEDS: Aspirin 81 MG TAB.CHEW PO SCH (08:21)
[2020-08-22] MEDS: Insulin LISPRO 300 UNITS/3 ML VIAL SUBQ SCH ×8 (08:22→21:37)
[2020-08-22] MEDS: amLODIPine 5 MG TABLET PO SCH (08:22)
[2020-08-22] MEDS: Megestrol Acetate 400 MG/10 ML UDC PO SCH (08:23)
[2020-08-22] MEDS ORDERED: Ziprasidone 10 MG in Water for inj. (sterile) 0.5 ML IM ONE (19:59)
[2020-08-22] MEDS: Dexmedetomidine HCl 400 MCG/100 ML MLS IVC SCH (21:35)
[2020-08-22] MEDS: Insulin DETEMIR 100 UNIT/ML X5UNITS SUBQ SCH (21:40)
[2020-08-23] MEDS ORDERED: Ziprasidone 10 MG in Water for inj. (sterile) 0.5 ML IM ONE
[2020-08-23] MEDS: *HR* Heparin 5,000 UNIT/ML VIAL SQ SCH ×2 (05:46→17:56)
[2020-08-23 08:27] LABS: BUN/Creatinine Ratio 25 (6-26); Blood Urea Nitrogen 33 mg/dL (8-23); Calcium 9.4 mg/dL (8.6-10.3); Carbon Dioxide 25 mEq/L (23-29); Chloride 104 mEq/L (98-107); Glucose 250 mg/dL (70-105); Magnesium 2.1 mg/dL (1.6-2.6); Osmolality,Calculated 298 (280-300); Phosphorous 3.8 mg/dL (2.7-4.5); Potassium 5.1 mEq/L (3.5-5.1); Sodium 136 mEq/L (136-145); eGFR For African Americans > 60 (> 60); eGFR For Non-African Americans 53 (> 60)
[2020-08-23] MEDS ORDERED: 0.9 % Sodium Chloride 1,000 ML ONE (09:03)
[2020-08-23] MEDS ORDERED: 0.9 % Sodium Chloride 1,000 ML IVC SCH (09:15)
[2020-08-23 09:35] LABS: ABG Base Excess -3 mEq/L (-2 to 3); ABG HCO3 20 mEq/L (21-27); ABG Oxygen Saturation 98 % (95-98); ABG PCO2 29 mmHg (35-45); ABG PH 7.44 pH Units (7.32-7.45); ABG PO2 99 mmHg (85-104); ABG TCO2 21 mEq/L (20-26)
[2020-08-23 09:53] LABS: Hematocrit 42.5 % (37.5-50.1); Hemoglobin 14.1 g/dL (12.9-16.9); Mean Corpuscular HGB Conc 33.2 g/dL (31.6-35.5); Mean Corpuscular Hemoglobin 29.7 pg (28.0-33.3); Mean Corpuscular Volume 89.5 fL (83.0-100.0); Mean Platelet Volume 9.9 fL (9.4-12.4); Platelet Count 250 K/mcL (140-400); Red Blood Count 4.75 M/mcL (4.19-5.50); Red Cell Distribution Width 13.8 % (11.5-14.5); White Blood Count 5.7 K/mcL (4.3-11.1)
[2020-08-23] MEDS: Insulin LISPRO 300 UNITS/3 ML VIAL SUBQ SCH ×7 (11:09→21:04)
[2020-08-23] MEDS: Aspirin 81 MG TAB.CHEW PO SCH (11:09)
[2020-08-23] MEDS: Megestrol Acetate 400 MG/10 ML UDC PO SCH (11:09)
[2020-08-23] MEDS: haloperidoL 1 MG TABLET PO SCH ×2 (11:09→21:03)
[2020-08-23] MEDS: cloNIDine HCL 0.1 MG TABLET PO SCH ×2 (11:09→21:03)
[2020-08-23] MEDS: amLODIPine 5 MG TABLET PO SCH (11:10)
[2020-08-23] MEDS: Cyanocobalamin (B-12) 1,000 MCG TABLET PO SCH (11:10)
[2020-08-23] MEDS: Cholecalciferol (D-3) 1,000 UNIT (25MCG) TABLET PO SCH (11:10)
[2020-08-23] MEDS: Metoprolol XL (24 HR) Succ 50 MG TAB.ER.24H PO SCH ×2 (11:10→21:04)
[2020-08-23] MEDS: Dexmedetomidine HCl 400 MCG/100 ML MLS IVC SCH (18:59)
[2020-08-23] MEDS: Insulin DETEMIR 100 UNIT/ML X5UNITS SUBQ SCH (21:11)
[2020-08-24] MEDS: *HR* Heparin 5,000 UNIT/ML VIAL SQ SCH ×2 (05:40→17:26)
[2020-08-24] MEDS: Insulin LISPRO 300 UNITS/3 ML VIAL SUBQ SCH ×7 (07:14→20:11)
[2020-08-24] MEDS: amLODIPine 5 MG TABLET PO SCH (08:40)
[2020-08-24] MEDS: haloperidoL 5 MG TABLET PO SCH ×2 (08:40→20:11)
[2020-08-24] MEDS: Cyanocobalamin (B-12) 1,000 MCG TABLET PO SCH (08:40)
[2020-08-24] MEDS: Cholecalciferol (D-3) 1,000 UNIT (25MCG) TABLET PO SCH (08:40)
[2020-08-24] MEDS: Metoprolol XL (24 HR) Succ 50 MG TAB.ER.24H PO SCH ×2 (08:40→20:10)
[2020-08-24] MEDS: Megestrol Acetate 400 MG/10 ML UDC PO SCH (08:41)
[2020-08-24] MEDS: Aspirin 81 MG TAB.CHEW PO SCH (08:41)
[2020-08-24] MEDS: cloNIDine HCL 0.1 MG TABLET PO SCH ×2 (08:41→20:11)
[2020-08-24] MEDS: Insulin DETEMIR 100 UNIT/ML X5UNITS SUBQ SCH (20:11)
[2020-08-25] MEDS: Haloperidol Lactate 5 MG/ML VIAL IVP PRN ×2 (00:23→23:21)
[2020-08-25] MEDS: Melatonin 3 MG TABLET PO PRN ×2 (00:23→23:21)
[2020-08-25] MEDS ORDERED: QUEtiapine Fumarate 25 MG TABLET PO PRN (00:55)
[2020-08-25 01:41] LABS: Basophils % 0.5 %; Eosinophils # 0.1 K/mcL (0.0-0.6); Eosinophils % 1.2 %; Hemoglobin 14.6 g/dL (12.9-16.9); Immature Granulocytes % 0.3 % (0-4); Lymphocytes # 1.2 K/mcL (0.6-4.6); Lymphocytes % 17.6 %; Mean Corpuscular HGB Conc 33.2 g/dL (31.6-35.5); Mean Corpuscular Hemoglobin 29.7 pg (28.0-33.3); Mean Corpuscular Volume 89.6 fL (83.0-100.0); Mean Platelet Volume 9.8 fL (9.4-12.4); Monocytes # 0.6 K/mcL (0.0-1.3); Monocytes % 8.6 %; Neutrophils # 4.7 K/mcL (1.6-8.9); Platelet Count 317 K/mcL (140-400); Red Blood Count 4.91 M/mcL (4.19-5.50); Red Cell Distribution Width 13.7 % (11.5-14.5); Segmented Neutrophils % 71.8 %; White Blood Count 6.5 K/mcL (4.3-11.1)
[2020-08-25 02:00] LABS: BUN/Creatinine Ratio 24 (6-26); Blood Urea Nitrogen 26 mg/dL (8-23); Calcium 8.7 mg/dL (8.6-10.3); Carbon Dioxide 20 mEq/L (23-29); Chloride 108 mEq/L (98-107); Glucose 103 mg/dL (70-105); Magnesium 2.1 mg/dL (1.6-2.6); Osmolality,Calculated 293 (280-300); Phosphorous 3.3 mg/dL (2.7-4.5); Potassium 3.5 mEq/L (3.5-5.1); Sodium 139 mEq/L (136-145); eGFR For African Americans > 60 (> 60); eGFR For Non-African Americans > 60 (> 60)
[2020-08-25] MEDS: *HR* Heparin 5,000 UNIT/ML VIAL SQ SCH ×2 (07:15→17:03)
[2020-08-25] MEDS: Insulin LISPRO 300 UNITS/3 ML VIAL SUBQ SCH ×7 (08:23→20:59)
[2020-08-25] MEDS: cloNIDine HCL 0.1 MG TABLET PO SCH ×2 (08:24→20:58)
[2020-08-25] MEDS: Cholecalciferol (D-3) 1,000 UNIT (25MCG) TABLET PO SCH (08:24)
[2020-08-25] MEDS: Aspirin 81 MG TAB.CHEW PO SCH (08:24)
[2020-08-25] MEDS: amLODIPine 5 MG TABLET PO SCH (08:24)
[2020-08-25] MEDS: Cyanocobalamin (B-12) 1,000 MCG TABLET PO SCH (08:24)
[2020-08-25] MEDS: haloperidoL 5 MG TABLET PO SCH ×2 (08:25→20:58)
[2020-08-25] MEDS: Metoprolol XL (24 HR) Succ 50 MG TAB.ER.24H PO SCH ×2 (08:25→20:58)
[2020-08-25] MEDS: Megestrol Acetate 400 MG/10 ML UDC PO SCH (08:25)
[2020-08-25] MEDS: Insulin DETEMIR 100 UNIT/ML X5UNITS SUBQ SCH (20:59)
[2020-08-26] MEDS: *HR* Heparin 5,000 UNIT/ML VIAL SQ SCH ×2 (06:03→16:55)
[2020-08-26] MEDS: Insulin LISPRO 300 UNITS/3 ML VIAL SUBQ SCH ×7 (08:04→20:21)
[2020-08-26] MEDS: Haloperidol Lactate 5 MG/ML VIAL IVP PRN (08:40)
[2020-08-26] MEDS: Aspirin 81 MG TAB.CHEW PO SCH (08:47)
[2020-08-26] MEDS: cloNIDine HCL 0.1 MG TABLET PO SCH ×2 (08:47→20:20)
[2020-08-26] MEDS: Megestrol Acetate 400 MG/10 ML UDC PO SCH (08:49)
[2020-08-26] MEDS: amLODIPine 5 MG TABLET PO SCH (08:49)
[2020-08-26] MEDS: haloperidoL 5 MG TABLET PO SCH ×2 (08:49→20:20)
[2020-08-26] MEDS: Cyanocobalamin (B-12) 1,000 MCG TABLET PO SCH (08:50)
[2020-08-26] MEDS: Cholecalciferol (D-3) 1,000 UNIT (25MCG) TABLET PO SCH (08:50)
[2020-08-26] MEDS: Metoprolol XL (24 HR) Succ 50 MG TAB.ER.24H PO SCH ×2 (08:50→20:20)
[2020-08-26] MEDS: Insulin DETEMIR 100 UNIT/ML X5UNITS SUBQ SCH (20:21)
[2020-08-26] MEDS: Melatonin 3 MG TABLET PO PRN (22:44)
[2020-08-27 01:36] LABS: BUN/Creatinine Ratio 24 (6-26); Blood Urea Nitrogen 26 mg/dL (8-23); Calcium 8.6 mg/dL (8.6-10.3); Carbon Dioxide 22 mEq/L (23-29); Chloride 107 mEq/L (98-107); Glucose 86 mg/dL (70-105); Magnesium 1.9 mg/dL (1.6-2.6); Osmolality,Calculated 290 (280-300); Phosphorous 2.9 mg/dL (2.7-4.5); Potassium 3.6 mEq/L (3.5-5.1); Sodium 138 mEq/L (136-145); eGFR For African Americans > 60 (> 60); eGFR For Non-African Americans > 60 (> 60)
[2020-08-27] MEDS: *HR* Heparin 5,000 UNIT/ML VIAL SQ SCH ×2 (05:32→18:34)
[2020-08-27] MEDS: amLODIPine 5 MG TABLET PO SCH (06:52)
[2020-08-27] MEDS: Metoprolol XL (24 HR) Succ 50 MG TAB.ER.24H PO SCH (06:52)
[2020-08-27] MEDS: cloNIDine HCL 0.1 MG TABLET PO SCH (06:52)
[2020-08-27] MEDS: Cholecalciferol (D-3) 1,000 UNIT (25MCG) TABLET PO SCH (08:01)
[2020-08-27] MEDS: Cyanocobalamin (B-12) 1,000 MCG TABLET PO SCH (08:02)
[2020-08-27] MEDS: Aspirin 81 MG TAB.CHEW PO SCH (08:02)
[2020-08-27] MEDS: haloperidoL 5 MG TABLET PO SCH (08:02)
[2020-08-27] MEDS: Insulin LISPRO 300 UNITS/3 ML VIAL SUBQ SCH ×6 (08:05→17:28)
[2020-08-27 18:44] LABS: Adenovirus Not Detected (Not Detect); Bordetella Pertussis Not Detected (Not Detect); Chlamydophila pneumoniae Not Detected (Not Detect); Coronavirus 229E Not Detected (Not Detect); Coronavirus HKU1 Not Detected (Not Detect); Coronavirus NL63 Not Detected (Not Detect); Coronavirus OC43 Not Detected (Not Detect); Human Metapneumovirus Not Detected (Not Detect); Human Rhinovirus/Enterovirus Not Detected (Not Detect); Influenza A Subtype 2009 H1 Not Detected (Not Detect); Influenza B Not Detected (Not Detect); Mycoplasma pneumoniae Not Detected (Not Detect); Parainfluenza Virus 1 Not Detected (Not Detect); Parainfluenza Virus 2 Not Detected (Not Detect); Parainfluenza Virus 3 Not Detected (Not Detect); Parainfluenza Virus 4 Not Detected (Not Detect); Respiratory Syncytial Virus Not Detected (Not Detect); SARS-CoV-2 Not Detected (Not Detect)
[2020-08-27 18:45] VITALS: BP 132/70
== END 2020-08-27 18:15 | DRG 637 ==
LOC: 2NNU 19:41 → EMEROOARM 19:41 → SUATTDRO 23:22 → 2NNU 23:53 → 3NENU 08-14 14:39 → 2NNU 08-22 21:20 → 3NENU 08-24 09:59
PROVIDERS: ADMIT Family Medicine; ATTEND Internal Medicine